=== PATIENT | male | born 1990 | race Caucasian/White ===

== ENCOUNTER 2016-11-13 17:33 | Emergency (ER) | payer OTHER ==
[~2016-11-13] VITALS: Ht 190.5 cm; Wt 90.9 kg
[~2016-11-13 17:33] MED LIST: HYDR25CA PO; OXYC-466 PO; SENN1TAB6 PO
[2016-11-13 17:43] VITALS: BP 145/80; PULSE 88; RESP 18; O2SAT 97
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
[2016-11-13 20:09] VITALS: BP 134/53; PULSE 81; RESP 15; O2SAT 99
== END 2016-11-13 20:01 | disposition home or self-care (01) ==
LOC: SED 17:33
DX: S06.0X1A Concussion with loss of consciousness of 30 minutes or less, initial encounter (principal); S40.012A Contusion of left shoulder, initial encounter; S70.12XA Contusion of left thigh, initial encounter; S30.0XXA Contusion of lower back and pelvis, initial encounter; S80.02XA Contusion of left knee, initial encounter; S20.212A Contusion of left front wall of thorax, initial encounter; V47.5XXA Car driver injured in collision with fixed or stationary object in traffic accident, initial encounter; Y93.89 Activity, other specified; Y92.410 Unspecified street and highway as the place of occurrence of the external cause; Y99.8 Other external cause status; H53.8 Other visual disturbances; R27.0 Ataxia, unspecified; M54.2 Cervicalgia; F17.200 Nicotine dependence, unspecified, uncomplicated; Z87.81 Personal history of (healed) traumatic fracture; Z98.890 Other specified postprocedural states